=== PATIENT | female | born 1995 | race Hispanic/Latino ===

== ENCOUNTER → 2020-02-05 | Outpatient (CLI) | payer OTHER | END | disposition home or self-care (01) | LOC: DX 10:29 → EDSTATUS 02-09 13:00 | PROVIDERS: ATTEND Internal Medicine Gastroenterology | DX: R10.10 Upper abdominal pain, unspecified (principal); R11.0 Nausea; Z01.812 Encounter for preprocedural laboratory examination; Z11.59 Encounter for screening for other viral diseases; Z53.9 Procedure and treatment not carried out, unspecified reason | CPT/HCPCS: U0002 ==